=== PATIENT | female | born 1935 | race Caucasian/White ===

== ENCOUNTER → 2016-06-20 | Outpatient (CLI) | payer OTHER ==
[~2016-06-20] MED LIST: ALBU1AER9; DAPT500I IV; IBUP-1277 PO; LEVO75TA5 PO; MULTTAB58 PO; VNTHFA/IN INH
[2016-06-20 08:35] VITALS: BP 160/76; PULSE 67; TEMP 36.6; O2SAT 98
--- NOTE | 2016-06-20 10:00 | Radiation Oncology Follow-Up ---
Radiation Oncology Follow-Up Date of Visit Jun 20, 2016. 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, stage II Status post completion of 3 of 5 cycles of cyclophosphamide methotrexate and fluorouracil Finding of metastatic disease to the right supraclavicular fossa and right upper mediastinum Status post completion of radiation therapy to these areas 02/14/2010 received 45 fu Systemic chemotherapy Presentation a subcarinal mass Status post completion of radiation therapy to the mediastinum completed 2011 received 6000 cGy Finding of metastatic disease to a paraesophageal lymph node 05/10/2013 status post completion of radiation therapy 07/29/2013 received 6000 cGy 3 new FDG avid nodes in the upper retroperitoneum on PET scan of 03/07/2016 Status post completion of radiation therapy to the abdomen 05/21/2016 received 5000 cGy Last Edited By: Roopa Cervantes on Jun 20, 2016 09:51 History of Present Illness his is a 81-year-old woman with a known history of breast cancer. She underwent a right mastectomy in 1997. This was stage II. She had 3 of 5 cycles of cyclophosphamide, methotrexate, and fluorouracil. She did well until 2009 when she developed a metastatic lymph node in the right supraclavicular fossa as well as the right upper mediastinum. This was treated with radiation therapy and completed 02/14/2010 she received 45 Fu. She also then received systemic chemotherapy. She then developed a subcarinal mass with significant associated cough. Treatment was given to the mass and mediastinum and this was completed 09/06/2011 she received 6000 cGy. The cough resolved and she tolerated the treatment well. She developed a paraesophageal lymph node and that was treated in 2013. The treatment was completed on 07/29/2013 she received 6000 cGy. She did have significant radiation esophagitis. This steadily improved and resolved over time. She's been followed closely by Dr. Cardona and has had rechecked CA-27-29 laboratory follow-up and PET scanning. The most recent CA-27-29 was 64. With the elevation of the CA-27-29 the patient was sent for a recheck PET scan. This was performed on 03/16/2016. This revealed 3 new FDG avid lymph nodes in the upper retroperitoneum, concerning for metastasis. Largest is in the gastrohepatic ligament. No other areas of FDG activity are identified. The patient was in communication with Dr. Cardona. He had suggested hormonal therapy with a trial of Arimidex. He also recommended that she be seen in radiation oncology. She was not in favor of taking the hormone manipulating medication. She stated other medications caused her to have nausea. She was in favor of treatment with radiation. She completed radiation 05/21/2016. She received 5000 cGy Interim History While under treatment she did have an issue with nausea. She had no problems with vomiting. She had no abdominal pain. There was no diarrhea. She has a history of chronic constipation. She also had headaches in the morning. The side effects persisted for approximately 2 weeks following the completion of treatment. These have now completely resolved. She is not having any nausea area she has not had any headaches. She is under treatment for an infection of the toe. She is receiving IV antibiotic therapy. She is receiving treatment through the medical treatment unit here at Hospital. She'll be seeing Dr. Almonte in follow-up this afternoon. Following treatment she had a mild pink spell aeration of the skin on the abdomen. That resolved without difficulty. Allergies Coded Allergies: Docetaxel (Verified Allergy, Severe, ANAPHYLAXIS, 06/20/16) Ondansetron (Verified Allergy, Severe, GI SYMPTOMS, 06/20/16) severe ROSA and dizziness Aspirin (Verified Allergy, Unknown, RASH, 06/20/16) Cephalosporins (Verified Allergy, Unknown, 06/20/16) Penicillins (Verified Allergy, Unknown, 06/20/16) Salicylates (Verified Allergy, Unknown, ABD PAIN, RASH, 06/20/16) Sulfa Antibiotics (Verified Allergy, Unknown, ., 06/20/16) Codeine (Verified Adverse Reaction, Unknown, ., 06/20/16) Morphine (Verified Adverse Reaction, Unknown, NAUSEA, 06/20/16) Home Medications Scheduled Albuterol (Proair Hfa), 2 PUFFS PRN Daptomycin (Daptomycin), 220 MG IV DAILY Levothyroxine Sodium (Levothyroxine Sodium), 1 TAB PO DAILY Multiple Vitamin (Multivitamin), 1 TAB PO DAILY Review of Systems Gastrointestinal: Symptoms: WNL GI Comments: Nausea stopped once patient stopped radiation Oral: Symptoms: No Problems Respiratory: Symptoms: WNL Other Respiratory: Cough at times from allergies Urinary: Symptoms: WNL Skin: Symptoms: No Problems Physical Exam Vital Signs Date Time Temp Pulse Resp B/P Pulse Ox O2 Delivery O2 Flow Rate FiO2 06/20/16 08:35 36.6 67 16 160/76 98 Fatigue: None General Appearance: no apparent distress Eyes: normal inspection, EOMI ENT: normal ENT inspection, hearing grossly normal Neck: no adenopathy Respiratory/Chest: lungs clear, no respiratory distress, no accessory muscle use Cardiovascular: regular rate, rhythm, no gallop, no murmur Abdomen: normal bowel sounds, non tender, soft, no organomegaly Extremities: no pedal edema Neurologic/Psychiatric: no motor/sensory deficits, alert, normal mood/affect Skin: warm/dry Lymphatic: no adenopathy Assessment & Plan Plan: Continue regular follow-up with her PCP and Dr. Cardona. She has an appointment to see Dr. Cardona in August. Recheck scanning per Dr. Cardona. She was concerned about the amount of time before she'll be seen. I explained to her that before undergoing recheck scanning enough time must be allotted for treatment changes. This is to prevent false positive findings. She understands this recommendation and will wait till August to see Dr. Cardona. We asked to return to our office in 6 months. She may call she has a questions or concerns in the interim. Total Time In Follow-Up I spent 20 minutes speaking to the patient and performing examination. I spent 15 minutes reviewing information completing this note. Copy To Sarah Almonte D.O.; Néstor Cardona M.D.
== END | disposition home or self-care (01) ==
LOC: C.ONC 08:10
PROVIDERS: ATTEND Radiology Radiation Oncology
DX: Z08 Encounter for follow-up examination after completed treatment for malignant neoplasm (principal); Z92.3 Personal history of irradiation; Z85.3 Personal history of malignant neoplasm of breast

== ENCOUNTER → 2016-11-07 | Outpatient (CLI) | payer OTHER ==
[~2016-11-07] MED LIST changes: -IBUP-1277 PO; -VNTHFA/IN INH
--- NOTE | 2016-11-07 14:37 | DIAGNOSTIC IMAGING REPORT ---
LEFT FOOT MIN 3 VIEWS ROUTINE CLINICAL HISTORY: 81 years-old Female presenting with acute osteomyelitis of the left toe/foot. TECHNIQUE: Frontal, oblique, and lateral views of the left foot were obtained. COMPARISON: 05/10/2015. FINDINGS: No acute fracture or malalignment. Mild osteopenia. At the interphalangeal joint of the first toe, apparent joint space loss. Additionally, erosion noted at the medial aspect, new from prior. No periosteal reaction. IMPRESSION: 1. Erosion at the medial aspect of the interphalangeal joint of the first toe. This could be seen in the setting of gout and other arthritides. If an overlying skin ulceration is present at this site, this would raise suspicion for osteomyelitis. Further evaluation with MR could be considered. Electronically signed by: Virgil Lai M.D. 11/07/2016 2:36 PM Dictated Date/Time: 11/07/2016 2:31 PM
== END | disposition home or self-care (01) ==
LOC: C.RAD1850 11:23
PROVIDERS: ATTEND Surgery
DX: M79.672 Pain in left foot (principal); M86.179 Other acute osteomyelitis, unspecified ankle and foot

== ENCOUNTER 2016-11-15 12:20 | Emergency (ER) | payer OTHER ==
[~2016-11-15] VITALS: Ht 157.5 cm; Wt 55.4 kg
[2016-11-15 12:31] VITALS: TEMP 36.5; Ht 157.5 cm; Wt 55.4 kg
[2016-11-15] MEDS ORDERED: VNTHFA/IN INH (12:53)
[2016-11-15 13:17] VITALS: O2SAT 97
[2016-11-15 13:26] LABS: BASO % 0.3 %; BASO ABS # 0.02 K/uL (0-0.2); COMPLETE YES; EOS % 1.1 %; HEMATOCRIT 44.9 % (37-47); IG% 0.3 %; LYMPH ABS # 0.92 K/uL (1.2-3.4); MEAN CELL VOLUME 95.5 fL (80-100); MEAN CORPUSCULAR HEMOGLOBIN 32.3 pg (25-34); MEAN CORPUSCULAR HGB CONC 33.9 g/dl (32-36); MEAN PLATELET VOLUME 9.7 fL (7.4-10.4); MONO % 7.3 %; PLATELET COUNT 205 K/uL (130-400); WHITE BLOOD COUNT 7.09 K/uL (4.8-10.8)
--- NOTE | 2016-11-15 13:38 | DIAGNOSTIC IMAGING REPORT ---
CHEST ONE VIEW PORTABLE HISTORY: 81 years-old Female Chest Pain COMPARISON: CT chest 07/12/2011, PET CT 04/07/2013 TECHNIQUE: Portable upright AP view of the chest FINDINGS: The cardiomediastinal and hilar silhouettes are within normal limits. No pneumothorax, pleural effusion, focal airspace consolidation or overt pulmonary edema. There is atherosclerosis of the aorta. There is sigmoidal scoliosis of the thoracolumbar spine. There are surgical clips in the right axillary region. IMPRESSION: No acute cardiopulmonary process. The above report was generated using voice recognition software. It may contain grammatical, syntax or spelling errors. Electronically signed by: Yefri Begum M.D. 11/15/2016 1:37 PM Dictated Date/Time: 11/15/2016 1:34 PM
[2016-11-15 13:49] LABS: BLOOD UREA NITROGEN 24 mg/dl (7-18); BUN/CREATININE RATIO 24.1 (10-20); CARBON DIOXIDE 27 mmol/L (21-32); CHLORIDE 105 mmol/L (98-107); CREATININE 0.98 mg/dl (0.60-1.20); GLUCOSE 98 mg/dl (70-99); POTASSIUM 3.8 mmol/L (3.5-5.1); SODIUM 139 mmol/L (136-145)
[2016-11-15 13:54] LABS: ALKALINE PHOSPHATASE 66 U/L (45-117); ALT/SGPT 24 U/L (12-78); AST/SGOT 19 U/L (15-37)
[2016-11-15 15:28] VITALS: BP 151/77; PULSE 70; O2SAT 100
--- NOTE | 2016-11-15 18:28 | EMERGENCY ROOM VISIT NOTE ---
History Report prepared by Danita: Harika Palomino Under the Supervision of: Dr. Renzo Sin D.O. First contact with patient: 12:48 Chief Complaint: FOOD BOLUS Stated Complaint: BLOCKED ESOPHAGUS History of Present Illness The patient is a 81 year old female who presents to the Emergency Room with complaints of a constant food bolus since this morning. The patient states that she has been having issues with her esophagus for the past year. She states that it is damaged due to multiple rounds of radiation treatments for multiple different cancers. She most recently finished radiation in April 2016. In December 2015 she had her esophagus stretched, which she states did not help at all. She is scheduled to have her esophagus stretched again in a week. The patient states that she has been having worsening trouble swallowing for the past few months. Over last two days it has become significantly worse. This morning she ate an egg and a cracker around 10am. She states that immediately after this she was unable to breathe or swallow her saliva. She called [facility] and they advised the patient to come to the ED for further evaluation. She states that since arriving in the ED she is now able to swallow her secretions, but she still feels uncomfortable. The patient denies chest pain and shortness of breath. She states that this feels like her previous issues with her esophagus. Source of History: patient Onset: this morning Position: chest Quality: other (food bolus) Timing: constant Modifying Factors (Worsening): eating, drinking, other (swallowing) Modifying Factors (Relieving): other (time) Associated Symptoms: No chest pain, No SOB Review of Systems See HPI for pertinent positives & negatives. A total of 10 systems reviewed and were otherwise negative. Past Medical & Surgical Medical Problems: (1) Breast cancer Surgical Problems: (1) History of mastectomy Family History FH: cancer Social History Smoking Status: Never Smoker Smokeless Tobacco Use: No Alcohol Use: occasionally Drug Use: none Marital Status: Housing Status: lives alone Occupation Status: employed Current/Historical Medications Scheduled Albuterol Hfa (Ventolin Hfa), 2 PUFFS INH QID Levothyroxine Sodium (Levothyroxine Sodium), 1 TAB PO DAILY Allergies Coded Allergies: Docetaxel (Verified Allergy, Severe, ANAPHYLAXIS, 07/10/16) Ondansetron (Verified Allergy, Severe, GI SYMPTOMS, 07/10/16) severe ROSA and dizziness Aspirin (Verified Allergy, Unknown, RASH, 07/10/16) Cephalosporins (Verified Allergy, Unknown, 07/10/16) Penicillins (Verified Allergy, Unknown, 07/10/16) Salicylates (Verified Allergy, Unknown, ABD PAIN, RASH, 07/10/16) Sulfa Antibiotics (Verified Allergy, Unknown, ., 07/10/16) Codeine (Verified Adverse Reaction, Unknown, ., 07/10/16) Morphine (Verified Adverse Reaction, Unknown, NAUSEA, 07/10/16) Physical Exam Vital Signs Date Time Temp Pulse Resp B/P (MAP) Pulse Ox O2 Delivery O2 Flow Rate FiO2 11/15/16 15:28 70 18 151/77 100 Room Air 11/15/16 14:14 80 18 150/81 97 Room Air 11/15/16 13:17 97 Room Air 11/15/16 12:31 36.5 80 18 165/87 98 Room Air Physical Exam GENERAL: alert, sitting up in bed, disheveled, well appearing, well nourished, no distress, non-toxic EYE EXAM: normal conjunctiva OROPHARYNX: no exudate, no erythema, lips, buccal mucosa, and tongue normal and mucous membranes are moist NECK: supple, no nuchal rigidity, no adenopathy, non-tender LUNGS: Clear to auscultation. Normal chest wall mechanics HEART: no murmurs, S1 normal and S2 normal ABDOMEN: abdomen soft, non-tender, normo-active bowel sounds, no masses, no rebound or guarding. BACK: Back is symmetrical on inspection and there is no deformity, no midline tenderness, no CVA tenderness. SKIN: no rashes and no bruising UPPER EXTREMITIES: upper extremities are grossly normal. LOWER EXTREMITIES: No pitting edema. NEURO EXAM: Normal sensorium, cranial nerves II-XII grossly intact, normal speech, no gross weakness of arms, no gross weakness of legs. Medical Decision & Procedures ER Provider Diagnostic Interpretation: Radiology results as stated below per my review and the radiologist's interpretation: CHEST ONE VIEW PORTABLE HISTORY: 81 years-old Female Chest Pain COMPARISON: CT chest 07/12/2011, PET CT 04/07/2013 TECHNIQUE: Portable upright AP view of the chest FINDINGS: The cardiomediastinal and hilar silhouettes are within normal limits. No pneumothorax, pleural effusion, focal airspace consolidation or overt pulmonary edema. There is atherosclerosis of the aorta. There is sigmoidal scoliosis of the thoracolumbar spine. There are surgical clips in the right axillary region. IMPRESSION: No acute cardiopulmonary process. The above report was generated using voice recognition software. It may contain grammatical, syntax or spelling errors. Electronically signed by: Yefri Begum M.D. 11/15/2016 1:37 PM Dictated Date/Time: 11/15/2016 1:34 PM Laboratory Results 11/15/16 13:15 Red Blood Count 4.70, Mean Corpuscular Volume 95.5, Mean Corpuscular Hemoglobin 32.3, Mean Corpuscular Hemoglobin Concent 33.9, Mean Platelet Volume 9.7, Neutrophils (%) (Auto) 78.0, Lymphocytes (%) (Auto) 13.0, Monocytes (%) (Auto) 7.3, Eosinophils (%) (Auto) 1.1, Basophils (%) (Auto) 0.3, Neutrophils # (Auto) 5.53, Lymphocytes # (Auto) 0.92, Monocytes # (Auto) 0.52, Eosinophils # (Auto) 0.08, Basophils # (Auto) 0.02 11/15/16 13:15 Test 11/15/16 13:15 White Blood Count 7.09 K/uL (4.8-10.8) Red Blood Count 4.70 M/uL (4.2-5.4) Hemoglobin 15.2 g/dL (12.0-16.0) Hematocrit 44.9 % (37-47) Mean Corpuscular Volume 95.5 fL (80-100) Mean Corpuscular Hemoglobin 32.3 pg (25-34) Mean Corpuscular Hemoglobin Concent 33.9 g/dl (32-36) Platelet Count 205 K/uL (130-400) Mean Platelet Volume 9.7 fL (7.4-10.4) Neutrophils (%) (Auto) 78.0 % Lymphocytes (%) (Auto) 13.0 % Monocytes (%) (Auto) 7.3 % Eosinophils (%) (Auto) 1.1 % Basophils (%) (Auto) 0.3 % Neutrophils # (Auto) 5.53 K/uL (1.4-6.5) Lymphocytes # (Auto) 0.92 K/uL (1.2-3.4) Monocytes # (Auto) 0.52 K/uL (0.11-0.59) Eosinophils # (Auto) 0.08 K/uL (0-0.5) Basophils # (Auto) 0.02 K/uL (0-0.2) RDW Standard Deviation 46.2 fL (36.4-46.3) RDW Coefficient of Variation 13.3 % (11.5-14.5) Immature Granulocyte % (Auto) 0.3 % Immature Granulocyte # (Auto) 0.02 K/uL (0.00-0.02) Anion Gap 7.0 mmol/L (3-11) Est Creatinine Clear Calc Drug Dose 36.8 ml/min Estimated GFR () 63.6 Estimated GFR (Non- 54.9 BUN/Creatinine Ratio 24.1 (10-20) Calcium Level 10.0 mg/dl (8.5-10.1) Total Bilirubin 0.6 mg/dl (0.2-1) Direct Bilirubin 0.2 mg/dl (0-0.2) Aspartate Amino Transf (AST/SGOT) 19 U/L (15-37) Alanine Aminotransferase (ALT/SGPT) 24 U/L (12-78) Alkaline Phosphatase 66 U/L (45-117) Troponin I < 0.015 ng/ml (0-0.045) Total Protein 8.0 gm/dl (6.4-8.2) Albumin 4.4 gm/dl (3.4-5.0) Lipase 191 U/L (73-393) Laboratory results per my review. ED Course ED COURSE: Vital signs were reviewed and showed hypertensive. The patients medical record was reviewed The above diagnostic studies were performed and reviewed. ED treatments and interventions as stated above. 1248: The patient was evaluated in room A11A. A complete history and physical examination was performed. 1334: I reassessed the patient at this time. She is drinking water and has been able to keep it down. She did not want an ECG because she knows that this is not her heart. 1435: I discussed the patient's case with JORGE L Wyman of GI. She felt that the patient could be discharged home and can follow-up as an outpatient. 1512: Upon reevaluation, the patient is feeling better and resting comfortably. I discussed my findings with the patient and she understands and agrees with the treatment plan. Based on the patients age, coexisting illnesses, exam and lab findings the decision to treat as an outpatient was made. The patient remained stable while under my care. The patient appeared well at the time of discharge. Medical Decision Differential diagnoses includes but is not limited to acute coronary syndrome, myocardial infarction, pericarditis, pulmonary embolus, aortic dissection, pneumonia, pneumothorax, musculoskeletal, shingles, esophageal. Patient is a 81-year-old female who presents the ER following eating a piece toast earlier today and feeling it stuck in her esophagus. She has been unable to swallow her secretions. CBC along with BMP, LFTs, bilirubin and troponin were negative. Lipase was negative. Chest x-ray was unremarkable. Patient declined EKG as she notes this is not her heart. Risk and benefits were explained and she understood. Patient was tolerating her secretions and eventually tolerated liquids without difficulty. Discussed case with GI who agreed with following up on for her EGD. Patient was discharged with resolution of her food bolus. Discussed with Pt concerning signs and symptoms to watch out for. Pt was instructed to follow up with their PCP and discussed with the patient their option to return to the ED at anytime for persistent or worsening symptoms. The appropriate anticipatory guidance and out-patient management, including indications for return to the emergency department, were explained at length to the patient and understood. Medication Reconcilliation Current Medication List: was personally reviewed by me Blood Pressure Screening Patient's blood pressure: Elevated blood pressure Blood pressure disposition: Elevated BP felt to be situational Consults Time Called: 1432 Consulting Physician: JORGE L Wyman Returned Call: [phone] I discussed the patient's case with JORGE L Wyman of GI. She felt that the patient could be discharged home and can follow-up as an outpatient. Impression Primary Impression: Esophageal obstruction due to food impaction Scribe Attestation The scribe's documentation has been prepared under my direction and personally reviewed by me in its entirety. I confirm that the note above accurately reflects all work, treatment, procedures, and medical decision making performed by me. Departure Information Dispostion Home / Self-Care Referrals Sarah Almonte D.O. (PCP) Forms HOME CARE DOCUMENTATION FORM, IMPORTANT VISIT INFORMATION, WORK / SCHOOL INSTRUCTIONS Patient Instructions ED Foreign Body Esophageal Rslv, My [facility] Additional Instructions Please follow up with your primary care doctor with in the next 24 hours. Any worsening of your symptoms, please return to the ED immediately. This includes trouble swallowing, trouble breathing, coughing, fevers greater than 100.4 or any other concerning signs and from your standpoint.
== END 2016-11-15 15:34 | disposition home or self-care (01) ==
LOC: C.EDB 12:21 → C.EDA 15:34
DX: T18.128A Food in esophagus causing other injury, initial encounter (principal); X58.XXXA Exposure to other specified factors, initial encounter; Z85.3 Personal history of malignant neoplasm of breast; Z90.10 Acquired absence of unspecified breast and nipple

== ENCOUNTER → 2016-12-19 | Outpatient (CLI) | payer OTHER ==
[~2016-12-19] MED LIST changes: -ALBU1AER9; -DAPT500I IV; -MULTTAB58 PO; +VNTHFA/IN INH
[2016-12-19 13:04] VITALS: BP 130/74; PULSE 80; TEMP 36.7; O2SAT 97
--- NOTE | 2016-12-19 13:56 | Radiation Oncology Follow-Up ---
Radiation Oncology Follow-Up Date of Visit Dec 19, 2016. Reason For Visit 6 month follow-up Radiation Completion Date Last radiation was to abd on 05/21/16 Diagnosis (1) Breast cancer Status: Chronic Onset Date: 03/02/2015 Stage: IV Permanent Comment: Status post right mastectomy for invasive ductal carcinoma the right breast, stage II Status post completion of 3 of 5 cycles of cyclophosphamide methotrexate and fluorouracil Finding of metastatic disease to the right supraclavicular fossa and right upper mediastinum Status post completion of radiation therapy to these areas 02/14/2010 received 45 fu Systemic chemotherapy Presentation a subcarinal mass Status post completion of radiation therapy to the mediastinum completed 2011 received 6000 cGy Finding of metastatic disease to a paraesophageal lymph node 05/10/2013 status post completion of radiation therapy 07/29/2013 received 6000 cGy 3 new FDG avid nodes in the upper retroperitoneum on PET scan of 03/07/2016 Status post completion of radiation therapy to the abdomen 05/21/2016 received 5000 cGy Last Edited By: Roopa Cervantes on Jun 20, 2016 09:51 History of Present Illness This is a 81-year-old woman with a known history of breast cancer. She underwent a right mastectomy in 1997. This was stage II. She had 3 of 5 cycles of cyclophosphamide, methotrexate, and fluorouracil. She did well until 2009 when she developed a metastatic lymph node in the right supraclavicular fossa as well as the right upper mediastinum. This was treated with radiation therapy and completed 02/14/2010 she received 45 Fu. She also then received systemic chemotherapy. She then developed a subcarinal mass with significant associated cough. Treatment was given to the mass and mediastinum and this was completed 09/06/2011 she received 6000 cGy. The cough resolved and she tolerated the treatment well. She developed a paraesophageal lymph node and that was treated in 2013. The treatment was completed on 07/29/2013 she received 6000 cGy. She did have significant radiation esophagitis. This steadily improved and resolved over time. She's been followed closely by Dr. Cardona and has had rechecked CA-27-29 laboratory follow-up and PET scanning. The most recent CA-27-29 was 64. With the elevation of the CA-27-29 the patient was sent for a recheck PET scan. This was performed on 03/16/2016. This revealed 3 new FDG avid lymph nodes in the upper retroperitoneum, concerning for metastasis. Largest is in the gastrohepatic ligament. No other areas of FDG activity are identified. The patient was in communication with Dr. Cardona. He had suggested hormonal therapy with a trial of Arimidex. He also recommended that she be seen in radiation oncology. She was not in favor of taking the hormone manipulating medication. She stated other medications caused her to have nausea. She was in favor of treatment with radiation. She completed radiation 05/21/2016. She received 5000 cGy Interim History She has now developed an esophageal stricture. She was in the emergency room approximately 2 weeks ago. She was having difficulty with swallowing. This has gradually become worse but then she was evening having problems with swallowing saliva. She was seen by Dr. Calvo and underwent an upper GI endoscopy and esophageal dilatation. She has had difficulty with swallowing and esophageal stricture in the past. The prior dilatation was last January. She denies any chest discomfort. She does have difficulty with swallowing foods and drink that are cold especially ice water. She is followed closely by Dr. Cardona. He does recheck laboratory studies as well as PET scanning. Her last PET scan was 09/18/2016. This showed complete metabolic response without definite discrete suspicious hypermetabolic uptake. In spite of this finding she has had some elevation of her tumor markers. She has been given aromatase inhibitors in the past and does not tolerate this medication. Allergies Coded Allergies: Docetaxel (Verified Allergy, Severe, ANAPHYLAXIS, 07/10/16) Ondansetron (Verified Allergy, Severe, GI SYMPTOMS, 07/10/16) severe ROSA and dizziness Aspirin (Verified Allergy, Unknown, RASH, 07/10/16) Cephalosporins (Verified Allergy, Unknown, 07/10/16) Penicillins (Verified Allergy, Unknown, 07/10/16) Salicylates (Verified Allergy, Unknown, ABD PAIN, RASH, 07/10/16) Sulfa Antibiotics (Verified Allergy, Unknown, ., 07/10/16) Codeine (Verified Adverse Reaction, Unknown, ., 07/10/16) Morphine (Verified Adverse Reaction, Unknown, NAUSEA, 07/10/16) Home Medications Scheduled Albuterol Hfa (Ventolin Hfa), 2 PUFFS INH QID Levothyroxine Sodium (Levothyroxine Sodium), 1 TAB PO DAILY Review of Systems Gastrointestinal: Symptoms: WNL, Constipation GI Comments: Nausea resolved;chronic constipation manageable at home; Oral: Symptoms: No Problems Respiratory: Symptoms: WNL Other Respiratory: Cough at times from allergies Urinary: Symptoms: WNL Skin: Symptoms: No Problems Breast: Right Upper Arm Measurement: 25.0 Right Mid Arm Measurement: 22.0 Right Wrist Measurement: 15.0 Left Upper Arm Measurement: 24.0 Left Mid Arm Measurement: 21.5 Left Wrist Measurement: 15.5 Arm Dominence: Right Physical Exam Vital Signs Date Time Temp Pulse Resp B/P (MAP) Pulse Ox O2 Delivery O2 Flow Rate FiO2 12/19/16 13:04 36.7 80 16 130/74 97 Fatigue: None General Appearance: no apparent distress Eyes: normal inspection, EOMI ENT: normal ENT inspection, hearing grossly normal Neck: no adenopathy, thyroid normal Respiratory/Chest: lungs clear, no respiratory distress, no accessory muscle use Cardiovascular: regular rate, rhythm, no gallop, no murmur Abdomen: non tender, soft, no organomegaly Extremities: no pedal edema Neurologic/Psychiatric: no motor/sensory deficits, alert, normal mood/affect Skin: warm/dry Lymphatic: no adenopathy Laboratory Studies Test 11/15/16 13:15 White Blood Count 7.09 K/uL (4.8-10.8) Red Blood Count 4.70 M/uL (4.2-5.4) Hemoglobin 15.2 g/dL (12.0-16.0) Hematocrit 44.9 % (37-47) Mean Corpuscular Volume 95.5 fL (80-100) Mean Corpuscular Hemoglobin 32.3 pg (25-34) Mean Corpuscular Hemoglobin Concent 33.9 g/dl (32-36) Platelet Count 205 K/uL (130-400) Mean Platelet Volume 9.7 fL (7.4-10.4) Neutrophils (%) (Auto) 78.0 % Lymphocytes (%) (Auto) 13.0 % Monocytes (%) (Auto) 7.3 % Eosinophils (%) (Auto) 1.1 % Basophils (%) (Auto) 0.3 % Neutrophils # (Auto) 5.53 K/uL (1.4-6.5) Lymphocytes # (Auto) 0.92 K/uL (1.2-3.4) Monocytes # (Auto) 0.52 K/uL (0.11-0.59) Eosinophils # (Auto) 0.08 K/uL (0-0.5) Basophils # (Auto) 0.02 K/uL (0-0.2) RDW Standard Deviation 46.2 fL (36.4-46.3) RDW Coefficient of Variation 13.3 % (11.5-14.5) Immature Granulocyte % (Auto) 0.3 % Immature Granulocyte # (Auto) 0.02 K/uL (0.00-0.02) Sodium Level 139 mmol/L (136-145) Potassium Level 3.8 mmol/L (3.5-5.1) Chloride Level 105 mmol/L (98-107) Carbon Dioxide Level 27 mmol/L (21-32) Anion Gap 7.0 mmol/L (3-11) Blood Urea Nitrogen 24 mg/dl (7-18) Creatinine 0.98 mg/dl (0.60-1.20) Est Creatinine Clear Calc Drug Dose 36.8 ml/min Estimated GFR () 63.6 Estimated GFR (Non- 54.9 BUN/Creatinine Ratio 24.1 (10-20) Random Glucose 98 mg/dl (70-99) Calcium Level 10.0 mg/dl (8.5-10.1) Total Bilirubin 0.6 mg/dl (0.2-1) Direct Bilirubin 0.2 mg/dl (0-0.2) Aspartate Amino Transferase (AST) 19 U/L (15-37) Alanine Aminotransferase (ALT) 24 U/L (12-78) Alkaline Phosphatase 66 U/L (45-117) Troponin I < 0.015 ng/ml (0-0.045) Total Protein 8.0 gm/dl (6.4-8.2) Albumin 4.4 gm/dl (3.4-5.0) Lipase 191 U/L (73-393) Assessment & Plan Plan: Continue follow-up with her primary care physician and Dr. Cardona. She is planning on seeing Dr. Cardona in January and having a recheck PET scan in February. She understands that she will periodically need esophageal dilatations. She'll continue follow-up with gastroenterology. She stated at this point she is more concerned about quality of life. She is not in favor of any type of therapy at this point. We asked her to return to our office in 1 year. She may call she has been questions or concerns in the interim. Total Time In Follow-Up I sent 20 minutes speaking to the patient performing examination. I spent 15 minutes reviewing information in completing this note. Copy To Sarah Almonte D.O.; Néstor Cardona M.D.
== END | disposition home or self-care (01) ==
LOC: C.ONC 12:56
PROVIDERS: ATTEND Physician Assistant Medical
DX: Z08 Encounter for follow-up examination after completed treatment for malignant neoplasm (principal); Z92.3 Personal history of irradiation; Z85.3 Personal history of malignant neoplasm of breast

== ENCOUNTER 2017-06-28 11:39 | Emergency (ER) | payer OTHER ==
[~2017-06-28] VITALS: Ht 157.5 cm; Wt 54.5 kg
[2017-06-28 11:53] VITALS: TEMP 36.8; Ht 157.5 cm; Wt 54.5 kg
--- NOTE | 2017-06-28 12:32 | EMERGENCY ROOM VISIT NOTE ---
History First contact with patient: 11:58 Chief Complaint: RASH Stated Complaint: SHINGLES ON LEFT SIDE OF FACE History of Present Illness The patient is a pleasant 82 year old female who presents to the Emergency Room with complaints of rash on her left face. She reports that she saw her questioned documents examiner 5 days ago and was diagnosed with shingles. She was given Valtrex and referred to Hotel Services Supervisor. She was cleared by ophthalmology but was given an antibacterial eye ointment. She did not take her Valtrex till yesterday. She reports having had shingles in the past and does not tolerate Valtrex well. She went to see her Hotel Services Supervisor again yesterday and was told that she was having a reaction that was causing the swelling around her eyes. She currently has left facial swelling with blisters. There are scattered lesions on her forehead and scalp as well. She complains of burning pain. Denies fevers. chills, nausea, vomiting She has a history of breast cancer s/p right mastectomy. She unfortunately has had metastatic disease and has just completed radiation therapy. Review of Systems See above for pertinent positives & negatives. A total of 10 systems reviewed and were otherwise negative. Past Medical/Surgical History Medical Problems: (1) Breast cancer Surgical Problems: (1) History of mastectomy Family History FH: cancer Social History Smoking Status: Never Smoker Alcohol Use: occasionally Drug Use: none Marital Status: Housing Status: lives alone Occupation Status: employed Current/Historical Medications Scheduled Acetaminophen (Tylenol), 500 MG PO UD Ciprofloxacin Tab (Cipro), 500 MG PO BID Clindamycin Hcl (Cleocin), 1 CAP PO TID Levothyroxine Sodium (Levothyroxine Sodium), 1 TAB PO QAM Valacyclovir (Valtrex), 1,000 MG PO TID Scheduled PRN Albuterol Hfa (Ventolin Hfa), 2 PUFFS INH QID PRN for SOB/Wheezing Physical Exam Vital Signs Date Time Temp Pulse Resp B/P (MAP) Pulse Ox O2 Delivery O2 Flow Rate FiO2 06/28/17 14:44 88 19 146/83 99 Room Air 06/28/17 13:02 82 06/28/17 11:53 36.8 86 18 162/83 99 Room Air Physical Exam GENERAL: Patient is awake alert in no acute distress EYES: The conjunctivae are clear. The pupils are round and reactive. extraocular muscles are intact EARS, NOSE, MOUTH AND THROAT: The nose is without any evidence of any deformity. Mucous membranes are moist tongue is midline FACE: left facial swelling, erythema with overlying blisters. Erythematous lesions noted on left forehead and scalp. Scabs on upper lip and nasolabial folds NECK: The neck is nontender and supple. RESPIRATORY: Normal respiratory effort is noted there is no evidence of wheezing rhonchi or rales CARDIOVASCULAR: Regular rate and rhythm noted there no murmurs rubs or gallops normal S1 normal S2 GASTROINTESTINAL: The abdomen is soft. Bowel sounds are present in all quadrants. Abdomen is nontender MUSCULOSKELETAL/EXTREMITIES: There is no evidence of gross deformity full range of motion is noted in the hips and shoulders SKIN: rash on left face as described above NEUROLOGIC: Patient is awake alert and oriented x3 Medical Decision & Procedures Laboratory Results 06/28/17 14:12 Red Blood Count 4.37, Mean Corpuscular Volume 93.4, Mean Corpuscular Hemoglobin 32.5, Mean Corpuscular Hemoglobin Concent 34.8, Mean Platelet Volume 8.7, Neutrophils (%) (Auto) 70.4, Lymphocytes (%) (Auto) 14.6, Monocytes (%) (Auto) 13.6, Eosinophils (%) (Auto) 0.4, Basophils (%) (Auto) 0.6, Neutrophils # (Auto ) 3.46, Lymphocytes # (Auto) 0.72, Monocytes # (Auto) 0.67, Eosinophils # (Auto ) 0.02, Basophils # (Auto) 0.03 06/28/17 14:12 Test 06/28/17 14:00 06/28/17 14:12 White Blood Count 4.92 K/uL (4.8-10.8) Red Blood Count 4.37 M/uL (4.2-5.4) Hemoglobin 14.2 g/dL (12.0-16.0) Hematocrit 40.8 % (37-47) Mean Corpuscular Volume 93.4 fL (80-100) Mean Corpuscular Hemoglobin 32.5 pg (25-34) Mean Corpuscular Hemoglobin Concent 34.8 g/dl (32-36) Platelet Count 167 K/uL (130-400) Mean Platelet Volume 8.7 fL (7.4-10.4) Neutrophils (%) (Auto) 70.4 % Lymphocytes (%) (Auto) 14.6 % Monocytes (%) (Auto) 13.6 % Eosinophils (%) (Auto) 0.4 % Basophils (%) (Auto) 0.6 % Neutrophils # (Auto) 3.46 K/uL (1.4-6.5) Lymphocytes # (Auto) 0.72 K/uL (1.2-3.4) Monocytes # (Auto) 0.67 K/uL (0.11-0.59) Eosinophils # (Auto) 0.02 K/uL (0-0.5) Basophils # (Auto) 0.03 K/uL (0-0.2) RDW Standard Deviation 46.5 fL (36.4-46.3) RDW Coefficient of Variation 13.6 % (11.5-14.5) Immature Granulocyte % (Auto) 0.4 % Immature Granulocyte # (Auto) 0.02 K/uL (0.00-0.02) Anion Gap 6.0 mmol/L (3-11) Est Creatinine Clear Calc Drug Dose 46.7 ml/min Estimated GFR () 85.9 Estimated GFR (Non- 74.1 BUN/Creatinine Ratio 18.0 (10-20) Calcium Level 9.7 mg/dl (8.5-10.1) Total Bilirubin 0.5 mg/dl (0.2-1) Aspartate Amino Transf (AST/SGOT) 17 U/L (15-37) Alanine Aminotransferase (ALT/SGPT) 23 U/L (12-78) Alkaline Phosphatase 76 U/L (45-117) Total Protein 7.8 gm/dl (6.4-8.2) Albumin 4.0 gm/dl (3.4-5.0) Globulin 3.8 gm/dl (2.5-4.0) Albumin/Globulin Ratio 1.1 (0.9-2) Medications Administered Medications (Trade) Dose Ordered Sig/Alice Route Start Time Stop Time Status Last Admin Dose Admin Valacyclovir HCl (Valtrex Tab) 1,000 mg NOW ONCE PO 06/28/17 13:00 06/28/17 13:04 DC 06/28/17 14:09 1,000 MG Ciprofloxacin (Cipro Tab) 500 mg NOW STAT PO 06/28/17 14:15 06/28/17 14:17 DC 06/28/17 14:42 500 MG Clindamycin Phosphate 300 mg/ Dextrose 52 ml @ 100 mls/hr NOW IV 06/28/17 14:15 06/28/17 15:55 DC 06/28/17 14:42 100 MLS/HR ED Course 1215 Patient was evaluated in B2. A complete history and physical was performed Medical Decision This is an 82 y/o F who presents with left sided facial blisters and redness x 5 days. Her presentation was concerning for shingles vs. herpes but also a superimposed mild cellulitis. The rash was primarily in the V2 distribution. Our antibiotic choices were limited due to her allergy profile as well as h/o esophageal scarring from radiation therapy. We had multiple discussions with the family and pharmacy about appropriate antibiotic coverage. We eventually agreed on Ciprofloxacin and Clindamycin. Side effects were advised. She will continue her Valtrex and was advised that she may crush the pill if it is hard to swallow but that she must take it at relatively regular intervals and complete the course. A sample of the vesicular fluid was obtained and sent out for PCR of HSV and Varicella. CBC was normal, without leucocytosis or anemia. CMP was normal. Per patient, she has been evaluated by [facility] twice this week without evidence of eye involvement. Our exam here does not reveal any gross abnormalities with visual acuity or occular movements. She was advised to follow up with her PCP in 2-3 days for a recheck of her condition. If erythema were to worsen or she had fevers etc, she was advised to come back to the ED. Impression Primary Impression: Shingles Additional Impression: Facial cellulitis Departure Information Dispostion Home / Self-Care Prescriptions Ciprofloxacin Tab (Cipro) 250 Mg Tab 500 MG PO BID for 7 Days, #28 TAB Prov: Sophie Floyd MD 06/28/17 Clindamycin Hcl (CLEOCIN) 300 Mg Cap 1 CAP PO TID for 7 Days, #21 CAP Prov: Sophie Floyd MD 06/28/17 Referrals Sarah Almonte D.O. (PCP) Patient Instructions My [facility] Problem Qualifiers
[2017-06-28] MEDS ORDERED: VALA500T60 PO (14:09)
[2017-06-28] MEDS ORDERED: ACET-1256 PO (14:10)
[2017-06-28] MEDS ORDERED: CLINDAMYCIN IV 300 MG in DEXTROSE 5% 50ML 50 ML IV SCH (14:15)
[2017-06-28] MEDS ORDERED: CIPROFLOXACIN 500 MG TAB PO STA (14:15)
[2017-06-28 14:23] LABS: BASO % 0.6 %; BASO ABS # 0.03 K/uL (0-0.2); EOS % 0.4 %; EOS ABS # 0.02 K/uL (0-0.5); HEMATOCRIT 40.8 % (37-47); HEMOGLOBIN 14.2 g/dL (12.0-16.0); IG# 0.02 K/uL (0.00-0.02); LYMPH % 14.6 %; LYMPH ABS # 0.72 K/uL (1.2-3.4); MEAN CELL VOLUME 93.4 fL (80-100); MEAN CORPUSCULAR HEMOGLOBIN 32.5 pg (25-34); MEAN CORPUSCULAR HGB CONC 34.8 g/dl (32-36); MEAN PLATELET VOLUME 8.7 fL (7.4-10.4); MONO % 13.6 %; MONO ABS # 0.67 K/uL (0.11-0.59); NEUT % 70.4 %; NEUT ABS # 3.46 K/uL (1.4-6.5); PLATELET COUNT 167 K/uL (130-400); RED CELL DISTRIBUTION WIDTH CV 13.6 % (11.5-14.5); RED CELL DISTRIBUTION WIDTH SD 46.5 fL (36.4-46.3); WHITE BLOOD COUNT 4.92 K/uL (4.8-10.8)
[2017-06-28] MEDS ORDERED: CIPR1TAB11 PO (14:36)
[2017-06-28] MEDS ORDERED: CLIN300C2 PO (14:36)
[2017-06-28 14:41] LABS: CALCIUM 9.7 mg/dl (8.5-10.1); CREATININE 0.76 mg/dl (0.60-1.20); POTASSIUM 4.1 mmol/L (3.5-5.1)
[2017-06-28 14:44] VITALS: BP 146/83; PULSE 88; O2SAT 99
[2017-06-28 14:44] LABS: TOTAL PROTEIN 7.8 gm/dl (6.4-8.2)
--- NOTE | 2017-06-28 15:50 | EMERGENCY ROOM VISIT NOTE ---
ED Visit Note First contact with patient: 11:58 Resident Physician Supervision Note: I interviewed and examined the patient. Discussed with Dr. Floyd and agree with findings and plan as documented in the note. Any exceptions or clarifications are listed here: This patient was evaluated and appeared to be in no significant distress. She declined the need for any pain medications. Left-sided the patient's face is erythematous with a vesicular rash superimposed. Appears to be in the V2 distribution. She has been cleared by optometry for any eye involvement. I do suspect varicella with secondary cellulitis. The patient has multiple medication intolerances. After consultation with the pharmacy, the patient was treated with clindamycin and Cipro. Laboratory work reveals a normal white blood cell count. She does not appear to be septic. She does desire to be discharged and I believe it is safe at this time. She was provided prescriptions for clindamycin and Cipro. She was encouraged to follow up with her PCP GRETCHEN and to continue the Valtrex as prescribed. Patient will return to the ER for worsening of symptoms or any medical concerns. Documented By: Danika Bautista
[2017-06-28] MEDS ORDERED: DOXYCYCLINE IV 100 MG in DEXTROSE 5% 100ML 100 ML IV SCH (21:00)
== END 2017-06-28 15:25 | disposition home or self-care (01) ==
LOC: C.EDB 11:42
DX: B02.9 Zoster without complications (principal); L03.211 Cellulitis of face; Z85.3 Personal history of malignant neoplasm of breast; Z90.11 Acquired absence of right breast and nipple; Z80.9 Family history of malignant neoplasm, unspecified; Z79.899 Other long term (current) drug therapy

== ENCOUNTER → 2017-08-21 | Outpatient (CLI) | payer OTHER ==
[~2017-08-21] MED LIST changes: +ACET-1256 PO; +VALA500T60 PO
[2017-08-21 13:05] VITALS: BP 139/67; PULSE 83; TEMP 36.5; O2SAT 100
--- NOTE | 2017-08-21 15:46 | Radiation Oncology Follow-Up ---
Radiation Oncology Follow-Up Date of Visit Aug 21, 2017. 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, stage II Status post completion of 3 of 5 cycles of cyclophosphamide methotrexate and fluorouracil Finding of metastatic disease to the right supraclavicular fossa and right upper mediastinum Status post completion of radiation therapy to these areas 02/14/2010 received 45 fu Systemic chemotherapy Presentation a subcarinal mass Status post completion of radiation therapy to the mediastinum completed 2011 received 6000 cGy Finding of metastatic disease to a paraesophageal lymph node 05/10/2013 status post completion of radiation therapy 07/29/2013 received 6000 cGy 3 new FDG avid nodes in the upper retroperitoneum on PET scan of 03/07/2016 Status post completion of radiation therapy to the abdomen 05/21/2016 received 5000 cGy PET/CT - 03/26/2017 - recurrence in the retroperitoneal LNs Pt refused anti-hormonal therapy offered by Dr. Cardona, elects for RT to LNs Status post completion of radiation therapy June 10, 2017. She received 4500 cGy. Last Edited By: Roopa Cervantes on Jun 16, 2017 16:46 History of Present Illness Ms. Sharma has a known history of breast cancer. She underwent a right mastectomy in 1997. This was stage II. She had 3 of 5 cycles of cyclophosphamide , methotrexate, and fluorouracil. She did well until 2009 when she developed a metastatic lymph node in the right supraclavicular fossa as well as the right upper mediastinum. This was treated with radiation therapy and completed 2009 she received 45 Fu. She also then received systemic chemotherapy. She then developed a subcarinal mass with significant associated cough. Treatment was given to the mass and mediastinum and this was completed 09/06/2011 she received 6000 cGy. The cough resolved and she tolerated the treatment well. She developed a paraesophageal lymph node and that was treated in 2013. The treatment was completed on 07/29/2013 she received 6000 cGy. She did have significant radiation esophagitis. This steadily improved and resolved over time. She's been followed closely by Dr. Cardona and has had rechecked CA-27-29 laboratory follow-up and PET scanning. The most recent CA-27-29 was 64. With the elevation of the CA-27-29 the patient was sent for a recheck PET scan. This was performed on 03/16/2016. This revealed 3 new FDG avid lymph nodes in the upper retroperitoneum, concerning for metastasis. Largest is in the gastrohepatic ligament. No other areas of FDG activity are identified. The patient was in communication with Dr. Cardona. He had suggested hormonal therapy with a trial of Arimidex. He also recommended that she be seen in radiation oncology. She was not in favor of taking the hormone manipulating medication. She stated other medications caused her to have nausea. She opted for radiation therapy and received 5000 cGy in 20 fractions and completed treatment on 2016. Subsequently, she did have a PET/CT scan completed on 09/18/2016 which showed complete metabolic response without definite evidence of recurrent or metastatic disease. The patient did have a repeat PET/CT scan completed on 03/26/2017 which revealed new metabolically active retroperitoneal lymphadenopathy. Dr. Cardona discuss treatment options with the patient and recommended hormonal therapy which the patient refused. The patient refuses all systemic therapy options at this point. Dr. Cardona is now referring the patient to us for consideration of radiation therapy. She underwent CT simulation. She was found to be a candidate for treatment to this area. She completed radiation therapy June 10, 2017. She received 4500 cGy Interim History She has had no issues with the area of treatment following the completion of radiation. While in treatment she did have mild nausea. This resolved and did not recur. She has had other health issues. She developed herpes zoster on the left side of her face. This unfortunately developed a secondary infection. She was seen in the emergency room and given antibiotic therapy. Antiviral medications were given by Dr. Kenney. The skin lesions healed without difficulty. She continues to have intermittent swelling and pain of her face. This is especially noted in the upper cheek and the left temporal area. She has also had pain in her left hip. She rates the pain at a level 5. She had a recheck PET scan which did show an inflammation in this area. She has been walking and trying to do stretching exercises which are helping with the hip pain. Her PET scan showed resolution of the hypermetabolic lymph adenopathy of the left periaortic region. This was the area of treatment. There was a slight increase in uptake in the retrocaval lymph nodes. This was reviewed with her by Dr. Fu. She recommended antiestrogen therapy. The patient declined treatment because she is concerned about side effects of bone pain and osteoporosis. She did agree to recheck PET scan in October. If she continues to have changes of progression Dr. Fu has recommended a pill. She stated she would rather take a chemotherapy pill then take the antiestrogen therapy. Allergies Coded Allergies: Docetaxel (Verified Allergy, Severe, ANAPHYLAXIS, 06/28/17) Ondansetron (Verified Allergy, Severe, GI SYMPTOMS, 06/28/17) severe ROSA and dizziness Aspirin (Verified Allergy, Unknown, RASH, 06/28/17) Cephalosporins (Verified Allergy, Unknown, 06/28/17) Penicillins (Verified Allergy, Unknown, 06/28/17) Salicylates (Verified Allergy, Unknown, ABD PAIN, RASH, 06/28/17) Sulfa Antibiotics (Verified Allergy, Unknown, ., 06/28/17) Codeine (Verified Adverse Reaction, Unknown, ., 06/28/17) Morphine (Verified Adverse Reaction, Unknown, NAUSEA, 06/28/17) Home Medications Scheduled Acetaminophen (Tylenol), 500 MG PO UD Levothyroxine Sodium (Levothyroxine Sodium), 1 TAB PO QAM Scheduled PRN Albuterol Hfa (Ventolin Hfa), 2 PUFFS INH QID PRN for SOB/Wheezing Review of Systems Gastrointestinal: Symptoms: WNL, Constipation GI Comments: Constipation - Managed well Oral: Symptoms: No Problems Respiratory: Symptoms: WNL, SOB With Exertion Other Respiratory: SOB from asthma Urinary: Symptoms: WNL Skin: Symptoms: No Problems Physical Exam Vital Signs Date Time Temp Pulse Resp B/P (MAP) Pulse Ox O2 Delivery O2 Flow Rate FiO2 08/21/17 13:05 36.5 83 16 139/67 100 Fatigue: None General Appearance: no apparent distress, + pertinent finding (Mild scarring of the left face from the previous herpes zoster. Slight swelling at the cheek. ) Eyes: normal inspection, EOMI ENT: normal ENT inspection, hearing grossly normal Neck: no adenopathy, thyroid normal Respiratory/Chest: lungs clear, no respiratory distress, no accessory muscle use Cardiovascular: regular rate, rhythm, no gallop, no murmur Abdomen: non tender, soft Extremities: no pedal edema Neurologic/Psychiatric: no motor/sensory deficits, alert, normal mood/affect Skin: warm/dry Pain Management Patient Reports Pain: Yes Side: Left Pain Location: Hip Initial Pain Intensity: 5.0 Pain Management Plan In her face in the area of the previous herpes zoster. She has been taking ibuprofen. Laboratory Laboratory Results: not applicable Pathology Pathology Results: not applicable Imaging Imaging Studies: were reviewed, and pertinent findings noted below Imaging Comments Date/Time of Imaging Study Study Completed: 08/06/2017 11:11 AM [facility] PACS Image Narrative EXAM PET CT SKULL BASE TO MID THIGH FDG - 08/06/2017 11:11 am HISTORY Breast cancer follow-up study. DATE OF DICTATION:08/06/2017 COMPARISON PET-CT 03/26/2017 and prior studies. TECHNIQUE Following the intravenous administration of approximately 8.0 mCi of F18-FDG and the oral administration of Gastrografin, PET/CT imaging was performed from the skull base to the mid thighs 60 minutes following the radiotracer injection. The patient's glucose level at the time of radiotracer injection was 85mg/dL. This is a follow up PET/CT for the above indication. FINDINGS SUVs in this report are SUV max, reference liver SUV mean measures 1.8 (prior 2.4) . HEAD / NECK: No FDG avid disease. No enlarged cervical lymph nodes. Parapharyngeal spaces are within normal limits. Paranasal sinuses are clear. CHEST: No FDG avid disease. Unchanged ground-glass opacity in the medial segment of right upper lobe with interlobular septal thickening, likely representing postradiation changes. Tiny subcentimeter pulmonary nodule in the anterior segment of left lower lobe, which is too small to be characterize by the PET-CT. Postsurgical changes of right mastectomy and right axillary lymph node dissection are redemonstrated. Heart is normal in size without pericardial effusion. No suspicious pulmonary nodules. No focal consolidation. A small right pleural effusion is seen. No mediastinal lymphadenopathy. No axillary lymphadenopathy. ABDOMEN/PELVIS: Interval resolution of the previously seen hypermetabolic left para-aortic lymph node. Mildly increased FDG uptake in the right retrocaval node, which appears stable in size measuring 1.5 x 0.6 cm, with maximum SUV of 3.3, prior 2.7. Gastrointestinal and genitourinary uptake is physiologic. Heterogeneous uptake is seen in the liver without focal lesion. Spleen, gallbladder and pancreas are unremarkable. No focal adrenal nodules. No hydronephrosis. No acute findings in the bowel. A small hiatal hernia. Sigmoid colon diverticula are seen without diverticulitis. MUSCULOSKELETAL / OTHER: No focal suspicious osseous lesions. Mildly asymmetrically increased uptake adjacent to the left greater trochanter, likely representing enthesitis. Mildly decreased uptake in the lumbar spine, corresponding to the prior radiation treatment. Mild dextrocurvature in the thoracic spine. [id number] degenerative changes in the spine. IMPRESSION 1. Interval resolution of the hypermetabolic left periaortic lymph node, as compared with prior PET-CT dated 03/26/2017. 2. Stable size with slightly increased FDG uptake in the retrocaval lymph node. Suggested close attention on follow-up imaging. Assessment & Plan Plan: The patient was seen today by Dr. Chaidez. She will follow-up with recheck PET scan in October. Today I discussed with her being evaluated for postherpetic neuralgia. I have asked her to make an appointment with her primary care provider or their PA or nurse practitioner. She was in agreement to do that. We reviewed the results of the PET scan. We discussed the finding of the abnormality at the hip. She does feel she is improving with walking and stretching exercises. We plan to have her return to our office following her PET scan in October we will discuss the results. She may possibly qualify for further radiation. Assessment & Plan (Attending) I discussed with Ms. Sharma her most recent PET/CT scan that was completed in July 2017. We did discuss the potential recurrence involving another regional retroperitoneal lymph node. I agree with Dr. Fu's recommendation to repeat a PET/CT scan in several months. I explained to the patient that it would be very reasonable for her to potentially consider chemotherapy if Dr. Fu recommends that given the fact she is unwilling to consider further hormonal therapy due to the severe side effects she had previously experienced. If the patient is unwilling to consider chemotherapy and other forms of systemic therapy, I did explain to her there may be a potential role for SBRT to the recurrent lymph node, assuming there is no other evidence of distant metastatic disease. I did explain to her that we would need to review the new PET/CT scan in great detail and then we can confirm if she is still is a candidate for radiation therapy potentially. The patient has always expressed interest in considering radiation therapy over other treatment modalities so we would be willing to consider further treatment again given the success of radiation therapy for other sites of previous disease. We did acknowledge that radiation therapy is only successful for local treatment and cannot help to manage her disease systemically and she understands this. She was agreeable to this plan. Total Time In Follow-Up I spent 25 minutes speaking to the patient in performing examination. I spent 15 minutes reviewing information and completing this note. AK Total Time (Attending) In Follow-Up I spent 25 minutes examining and counseling the patient. [employer] Copy To Sarah Almonte D.O.; Mary Fu MD
== END | disposition home or self-care (01) ==
LOC: C.ONC 12:54
PROVIDERS: ATTEND Physician Assistant Medical
DX: Z08 Encounter for follow-up examination after completed treatment for malignant neoplasm (principal); Z92.3 Personal history of irradiation; Z85.3 Personal history of malignant neoplasm of breast

== ENCOUNTER → 2017-11-19 | Outpatient (CLI) | payer OTHER ==
[~2017-11-19] MED LIST changes: +CHOL1000 PO; +MULT-506 PO; -VALA500T60 PO
[2017-11-19 14:28] VITALS: BP 150/78; PULSE 72; TEMP 36.5; O2SAT 97
--- NOTE | 2017-11-19 16:54 | Radiation Oncology Follow-Up ---
Radiation Oncology Follow-Up Date of Visit Nov 19, 2017. 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, stage II Status post completion of 3 of 5 cycles of cyclophosphamide methotrexate and fluorouracil Finding of metastatic disease to the right supraclavicular fossa and right upper mediastinum Status post completion of radiation therapy to these areas 02/14/2010 received 45 fu Systemic chemotherapy Presentation a subcarinal mass Status post completion of radiation therapy to the mediastinum completed 2011 received 6000 cGy Finding of metastatic disease to a paraesophageal lymph node 05/10/2013 status post completion of radiation therapy 07/29/2013 received 6000 cGy 3 new FDG avid nodes in the upper retroperitoneum on PET scan of 03/07/2016 Status post completion of radiation therapy to the abdomen 05/21/2016 received 5000 cGy PET/CT - 03/26/2017 - recurrence in the retroperitoneal LNs Pt refused anti-hormonal therapy offered by Dr. Cardona, elects for RT to LNs Status post completion of radiation therapy June 10, 2017. She received 4500 cGy. Last Edited By: Roopa Cervantes on Jun 16, 2017 16:46 History of Present Illness Ms. Sharma has a known history of breast cancer. She underwent a right mastectomy in 1997. This was stage II. She had 3 of 5 cycles of cyclophosphamide , methotrexate, and fluorouracil. She did well until 2009 when she developed a metastatic lymph node in the right supraclavicular fossa as well as the right upper mediastinum. This was treated with radiation therapy and completed 2009 she received 45 Fu. She also then received systemic chemotherapy. She then developed a subcarinal mass with significant associated cough. Treatment was given to the mass and mediastinum and this was completed 09/06/2011 she received 6000 cGy. The cough resolved and she tolerated the treatment well. She developed a paraesophageal lymph node and that was treated in 2013. The treatment was completed on 07/29/2013 she received 6000 cGy. She did have significant radiation esophagitis. This steadily improved and resolved over time. She's been followed closely by Dr. Cardona and has had rechecked CA-27-29 laboratory follow-up and PET scanning. The most recent CA-27-29 was 64. With the elevation of the CA-27-29 the patient was sent for a recheck PET scan. This was performed on 03/16/2016. This revealed 3 new FDG avid lymph nodes in the upper retroperitoneum, concerning for metastasis. Largest is in the gastrohepatic ligament. No other areas of FDG activity are identified. The patient was in communication with Dr. Cardona. He had suggested hormonal therapy with a trial of Arimidex. He also recommended that she be seen in radiation oncology. She was not in favor of taking the hormone manipulating medication. She stated other medications caused her to have nausea. She opted for radiation therapy and received 5000 cGy in 20 fractions and completed treatment on 2016. Subsequently, she did have a PET/CT scan completed on 09/18/2016 which showed complete metabolic response without definite evidence of recurrent or metastatic disease. The patient did have a repeat PET/CT scan completed on 03/26/2017 which revealed new metabolically active retroperitoneal lymphadenopathy. Dr. Cardona discuss treatment options with the patient and recommended hormonal therapy which the patient refused. The patient refuses all systemic therapy options at this point. Dr. Cardona is now referring the patient to us for consideration of radiation therapy. She underwent CT simulation. She was found to be a candidate for treatment to this area. She completed radiation therapy June 10, 2017. She received 4500 cGy. Interim History She underwent a recheck PET scan November 05, 2017. This unfortunately has shown a recurrent left periaortic lymph node with mild metabolic activity. Stable size of retrocrural lymph node with mild metabolic activity. No other sites of abnormal FDG uptake. She is seen Dr. Fu. There has been ongoing discussion of possible use of antiestrogen therapy. She has concerns with osteoporosis. She had a recent DEXA scan which shows that her osteoporosis is unchanged over the past 10 years. She stated she will require treatment for the osteoporosis if she would be placed on the antiestrogen therapy. Her respiratory status has changed. She has more shortness of breath of late. She feels this is secondary to her asthma. She is using her inhaler more often. She does have a cough. Allergies Coded Allergies: Docetaxel (Verified Allergy, Severe, ANAPHYLAXIS, 06/28/17) Ondansetron (Verified Allergy, Severe, GI SYMPTOMS, 06/28/17) severe ROSA and dizziness Aspirin (Verified Allergy, Unknown, RASH, 06/28/17) Cephalosporins (Verified Allergy, Unknown, 06/28/17) Penicillins (Verified Allergy, Unknown, 06/28/17) Salicylates (Verified Allergy, Unknown, ABD PAIN, RASH, 06/28/17) Sulfa Antibiotics (Verified Allergy, Unknown, ., 06/28/17) Codeine (Verified Adverse Reaction, Unknown, ., 06/28/17) Morphine (Verified Adverse Reaction, Unknown, NAUSEA, 06/28/17) Home Medications Scheduled Cholecalciferol (Vitamin D3), 1 TAB PO DAILY Levothyroxine Sodium (Levothyroxine Sodium), 1 TAB PO QAM Multivitamin (Multivitamin), 1 TAB PO DAILY Scheduled PRN Albuterol Hfa (Ventolin Hfa), 2 PUFFS INH QID PRN for SOB/Wheezing Review of Systems Gastrointestinal: Symptoms: Constipation GI Comments: Constipation - manageable at home; Oral: Symptoms: No Problems Respiratory: Symptoms: Dry Cough, SOB With Exertion Sputum Character: Dry cough over past couple weeks; Other Respiratory: SOB w/exertion that she relates to asthma; Urinary: Symptoms: WNL Skin: Symptoms: No Problems Physical Exam Vital Signs Date Time Temp Pulse Resp B/P (MAP) Pulse Ox O2 Delivery O2 Flow Rate FiO2 11/19/17 14:28 36.5 72 20 150/78 97 Fatigue: None General Appearance: no apparent distress Eyes: normal inspection, EOMI ENT: normal ENT inspection, hearing grossly normal Neck: no adenopathy, thyroid normal Respiratory/Chest: lungs clear, no respiratory distress, no accessory muscle use Cardiovascular: regular rate, rhythm, no gallop, no murmur Abdomen: non tender, soft, no organomegaly Extremities: no pedal edema Neurologic/Psychiatric: no motor/sensory deficits, alert, normal mood/affect Skin: warm/dry Pain Management Patient Reports Pain: No Initial Pain Intensity: 0.0 Pain Management Plan She denies pain therefore requires no pain management. Laboratory Laboratory Results: were reviewed Pathology Pathology Results: were reviewed, and pertinent findings noted in HPI Imaging Imaging Studies: were reviewed, and pertinent findings noted below Imaging Comments PET scan reviewed in the interim history. Assessment & Plan Plan: The patient was seen and examined by Dr. Chaidez. The PET scan was reviewed in radiology. It is felt that the area of the left periaortic lymph node has not been previously treated. A CT simulation was scheduled. Dr. Chaidez obtain a consent. Side effects were discussed. She is in favor with going forward with radiation therapy. The images will be fused with the PET scan to evaluate for overlap. She can begin treatment when the treatment plans are complete. She will continue regular follow-up with Dr. Fu and her primary care physician. Assessment & Plan (Attending) Ms. Sharma is an 82-year-old female with metastatic breast cancer. She has had multiple isolated recurrences involving retroperitoneal lymph nodes that have been treated with radiation therapy. She has been previously offered both chemotherapy and hormonal therapy and refused both options given previous experience with side effects from treatment. Currently, the patient is following with Dr. Fu for medical oncology. Patient her most recent PET/CT scan, Dr. Fu has recommended consideration of anti-hormonal therapy. The patient still reluctant to consider treatment with anti-hormonal therapy and would prefer radiation therapy if possible. We are now seeing the patient back in follow-up evaluation. After reviewing the studies, I did explain to the patient that it may be possible to consider another course of radiation therapy. The patient understands that there will be overlap from her previous courses of treatment and that will increase her risk of all side effects. I did caution her that using radiation therapy as a treatment option will only potentially treat her local disease however it will not address her systemic disease which hormonal therapy will help to treat. With this understanding, the patient has elected to undergo her course of radiation therapy to the enlarging retroperitoneal lymph node that is also FDG avid on PET/CT. We have obtained consent today for radiation therapy. We have scheduled her for a CT simulation. If there is any difficulty or challenge with treatment, I will call her and we will discuss if radiation therapy is still a reasonable option for her. She will see Dr. Fu at the end of this week to also discuss her choice. We have explained the indications, alternatives, benefits, risks and side effects of radiation therapy to the abdomen. We have explained the most common side effects including but are not limited to skin erythema, skin break down, hair loss, fibrosis, adhesion development, radiation pneumonitis, rib and bone fracture, renal failure, kidney disease, liver disease, liver failure, bowel obstruction, bowel perforation, urinary symptoms, nausea, vomiting, diarrhea, vascular disease, perforation of the inferior vena cava, bleeding, spinal cord myelopathy, anemia, fatigue and development of secondary malignancy, . Women may also have early onset ovarian failure leading to premature menopause and may experience infertility issues depending on her age. She understands that overlap from her previous course of radiation therapy with the current course of treatment will increase her risk of all side effects. We have explained the CT simulation process and treatment planning. We explained what to expect before, during and after treatment on a regular basis. The patient understands and would be willing to consent to treatment. The patient had multiple questions which were answered to their full satisfaction. Thank you for allowing us to participate in the care of this patient. This chart was completed in part utilizing [employer] Speech Voice Recognition software. Attempts were made to minimize the grammatical errors, random word insertions, pronoun errors and incomplete sentences. Any formal questions or concerns about the content, text or information contained within the body of this dictation should be directly addressed to the provider for clarification. Rajwinder Chaidez MD Department of Radiation Oncology [facility] Total Time In Follow-Up I spent 20 minutes speaking to the patient in performing examination. I spent 15 minutes reviewing information and completing this note. [place] Total Time (Attending) In Follow-Up I spent 30 minutes examining and counseling the patient. I spent 15 minutes completing this note. PRODUCE DEPARTMENT MANAGER Copy To Sarah Almonte D.O.; Mary Fu MD
== END | disposition home or self-care (01) ==
LOC: C.ONC 14:13
PROVIDERS: ATTEND Physician Assistant Medical
DX: Z08 Encounter for follow-up examination after completed treatment for malignant neoplasm (principal); Z92.3 Personal history of irradiation; Z85.3 Personal history of malignant neoplasm of breast